=== PATIENT | female | born 1950 | race Caucasian/White ===

== ENCOUNTER 2018-03-18 07:30 | Emergency (ER) | payer MEDICARE ==
[2018-03-18 07:36] VITALS: RESP 18
[2018-03-18] MEDS ORDERED: SODIUM CHLORIDE 0.9% 1,000 ML IV STA (07:39)
[2018-03-18 08:47] LABS: Appearance,Urine Clear (Clear); Bilirubin,Urine Negative (Negative); Blood,Urine Negative (Negative); Color,Urine Light Yellow; Glucose,Urine (UA) Negative (Negative); Ketones,Urine Negative (Negative); Leukocyte Esterase,Urine Negative (Negative); Nitrite,Urine Negative (Negative); Protein,Urine Negative (Negative); Specific Gravity,Urine 1.004 (1.001-1.035); Urobilinogen,Urine <2.0 mg/dL (<2.0)
[2018-03-18 08:59] LABS: Basophils % (A) 0 %; Eosinophils # (A) 0.1 k/uL (0-0.7); Eosinophils % (A) 1 %; HCT 39.2 % (34.0-46.0); HGB 12.9 gm/dL (11.4-16.0); Lymphocytes # (A) 1.2 k/uL (1.0-4.8); Lymphocytes % (A) 18 %; MCH 30.3 pg (25.0-35.0); MCHC 32.8 g/dL (31.0-37.0); MCV 92.3 fL (80.0-100.0); Mean Platelet Volume 6.5; Monocytes # (A) 0.3 k/uL (0-1.0); Monocytes % (A) 5 %; Neutrophils % (A) 75 %; Platelet Count 247 k/uL (150-450); RBC 4.25 m/uL (3.80-5.40); RDW 12.5 % (11.5-15.5); WBC 6.7 k/uL (3.8-10.6)
[2018-03-18 09:00] LABS: Albumin 3.8 g/dL (3.5-5.0); Calcium 9.5 mg/dL (8.4-10.2); Total Bilirubin 0.7 mg/dL (0.2-1.3); Total Protein 6.3 g/dL (6.3-8.2)
--- NOTE | 2018-03-18 09:50 | CT ---
EXAMINATION TYPE: CT abdomen pelvis w con DATE OF EXAM: 03/18/2018 COMPARISON: None INDICATION: Left upper flank pain DLP: 551.4 mGycm, Automated exposure control for dose reduction was used. CONTRAST: 100 mL of Isovue 300. Study performed without Oral Contrast TECHNIQUE: Axial images were obtained from above the diaphragm to the pubic rami in the axial plane a t 5 mm thick sections. Reconstructed images are reviewed on the computer in the coronal plane. FINDINGS: Limited CT sections are obtained the lung bases. The lung bases are clear. CT ABDOMEN: Liver: Some very subtle hypodensity may be within the right lobe liver adjacent to the ligamentum ter es. Series 201 image 25. On delayed images this area appears normal. May be related to the phase of c ontrast. Underlying abnormality is not excluded. Consider ultrasound for additional evaluation. Spleen: Normal Pancreas: There is a 0.5 cm slightly hypodense area within the proximal tail of the pancreas. Series 201 image 25. Remainder the pancreas appears unremarkable. This could be further evaluated with ultra sound. Adrenal glands: The adrenal glands are normal. Gallbladder: Normal Kidneys: No masses are evident. No hydronephrosis is present. No cortical renal cysts are present. Left peripelvic cysts are present. Delayed images were obtained through the kidneys, which remain unr emarkable. Aorta: Normal Inferior vena cava: Normal. CT PELVIS: Loops of bowel within the abdomen and pelvis are normal. Study is performed without oral contrast limiting bowel evaluation. Appendix: Normal as visualized. Urinary bladder: Normal. Genitourinary structures: Uterus and adnexa are unremarkable. No free fluid is within the pelvis. Osseous structures: No suspicious lytic or sclerotic lesions. Some facet degenerative changes present . IMPRESSIONS: 1. Suspicious acute changes not evident to account for left flank pain. 2. Subtle changes on the early phase contrast within the pancreas and liver discussed above. Follow-u p ultrasound could be performed.
--- NOTE | 2018-03-18 10:14 | ED ---
Abdominal Pain HPI - General Source: patient, RN notes reviewed Mode of arrival: ambulatory Limitations: no limitations <Jaime Cooper - Last Filed: 03/18/18 10:09> <Bari Vogel - Last Filed: 03/18/18 10:18> - General Chief Complaint: Abdominal Pain Stated Complaint: LEFT FLANK PAIN Time Seen by Provider: 03/18/18 07:38 - History of Present Illness Initial Comments: 67-year-old female presents emergency Department chief complaint of left upper quadrant abdominal pain. Patient states that has wax and wane but is worsened overnight. Patient states pain wraps around her back. She denies any associated nausea, vomiting diarrhea constipation. Denies any chest pain or shortness breath no acid reflux. She states only hurts if you press on it. Patient states that she's had a colonoscopy or approximately 5 years ago which had no acute abnormality's. Patient denies any melena or rectal bleeding. Patient had no dysuria no hematuria no history kidney stones. (Jaime Cooper) - Related Data Home Medications Medication Instructions Recorded Confirmed Ibuprofen [Motrin Ib] 400 mg PO Q6H PRN 03/18/18 03/18/18 Allergies Allergy/AdvReac Type Severity Reaction Status Date / Time ampicillin Allergy Rash/Hives Verified 03/18/18 08:23 Penicillins Allergy Rash/Hives Verified 03/18/18 08:23 Review of Systems ROS Other: All systems not noted in ROS Statement are negative. <Jaime Cooper - Last Filed: 03/18/18 10:09> ROS Other: All systems not noted in ROS Statement are negative. <Bari Vogel - Last Filed: 03/18/18 10:18> ROS Statement: Those systems with pertinent positive or pertinent negative responses have been documented in the HPI. Past Medical History Past Medical History: No Reported History History of Any Multi-Drug Resistant Organisms: None Reported Additional Past Surgical History / Comment(s): left overy removal Past Psychological History: No Psychological Hx Reported Smoking Status: Never smoker Past Alcohol Use History: Occasional Past Drug Use History: None Reported <Jaime Cooper - Last Filed: 03/18/18 10:09> General Exam Limitations: no limitations General appearance: alert, in no apparent distress Head exam: Present: atraumatic, normocephalic, normal inspection Eye exam: Present: normal appearance, PERRL, EOMI. Absent: scleral icterus, conjunctival injection, periorbital swelling ENT exam: Present: normal exam, normal oropharynx, mucous membranes moist Neck exam: Present: normal inspection. Absent: tenderness, meningismus, lymphadenopathy Respiratory exam: Present: normal lung sounds bilaterally. Absent: respiratory distress, wheezes, rales, rhonchi, stridor Cardiovascular Exam: Present: regular rate, normal rhythm, normal heart sounds. Absent: systolic murmur, diastolic murmur, rubs, gallop, clicks GI/Abdominal exam: Present: soft, tenderness (Mild to moderate mid to left upper quadrant tenderness), normal bowel sounds. Absent: distended, guarding, rebound, rigid Back exam: Absent: CVA tenderness (R), CVA tenderness (L) Skin exam: Present: warm, dry, intact, normal color. Absent: rash <Jaime Cooper - Last Filed: 03/18/18 10:09> Course <Jaime Cooper - Last Filed: 03/18/18 10:09> <Bari Vogel - Last Filed: 03/18/18 10:18> Vital Signs 03/18/18 07:31 Temperature 97.9 F Pulse Rate 89 Respiratory 18 Rate Blood Pressure 140/89 O2 Sat by Pulse 99 Oximetry - Reevaluation(s) Reevaluation #1: 03/18/18 10:15 PA supervision: I proceeded [id number] evaluation the patient she's had left- sided flank pain radiating from the left CVA area around to the front. She has some mild tenderness palpation no evidence of any rash however. No fevers chills nausea vomiting sweats dysuria hematuria or constipation. She does have a history of shingles in the past. Workup is essentially unremarkable except for a hypodensity in pain.. She'll be discharged and referred to GI. I do agree with the assessment and plan. The presentation may represent musculoskeletal versus early herpes zoster. Patient was informed of this and she has had before and will be vigilant. 03/18/18 10:18 (Bari Vogel) Medical Decision Making - Lab Data Result diagrams: 03/18/18 08:30 03/18/18 08:30 <Jaime Cooper - Last Filed: 03/18/18 10:09> - Lab Data Result diagrams: 03/18/18 08:30 03/18/18 08:30 <JaspreetBari - Last Filed: 03/18/18 10:18> - Medical Decision Making 67-year-old female presented for dominant pain. Patient had lab work which was unremarkable CT was obtained to rule out diverticulitis, kidney stone or any other infectious aspects. This did not reveal any acute abnormality other than small area noted on the liver and pancreas. Patient was updated about these findings and the importance of following up with GI to have ultrasound and further workup. (Jaime Cooper) - Lab Data Lab Results 03/18/18 03/18/18 03/18/18 Range/Units 08:30 08:30 08:30 WBC 6.7 (3.8-10.6) k/uL RBC 4.25 (3.80-5.40) m/uL Hgb 12.9 (11.4-16.0) gm/dL Hct 39.2 (34.0-46.0) % MCV 92.3 (80.0-100.0) fL MCH 30.3 (25.0-35.0) pg MCHC 32.8 (31.0-37.0) g/dL RDW 12.5 (11.5-15.5) % Plt Count 247 (150-450) k/uL Neutrophils % 75 % Lymphocytes % 18 % Monocytes % 5 % Eosinophils % 1 % Basophils % 0 % Neutrophils # 5.0 (1.3-7.7) k/uL Lymphocytes # 1.2 (1.0-4.8) k/uL Monocytes # 0.3 (0-1.0) k/uL Eosinophils # 0.1 (0-0.7) k/uL Basophils # 0.0 (0-0.2) k/uL Sodium 139 (137-145) mmol/L Potassium 4.0 (3.5-5.1) mmol/L Chloride 105 (98-107) mmol/L Carbon Dioxide 26 (22-30) mmol/L Anion Gap 8 mmol/L BUN 12 (7-17) mg/dL Creatinine 0.87 (0.52-1.04) mg/dL Est GFR (CKD-EPI)AfAm 81 (>60 ml/min/1.73 sqM) Est GFR (CKD-EPI)NonAf 70 (>60 ml/min/1.73 sqM) Glucose 99 (74-99) mg/dL Plasma Lactic Acid Cameron (0.7-2.0) mmol/L Calcium 9.5 (8.4-10.2) mg/dL Total Bilirubin 0.7 (0.2-1.3) mg/dL AST 22 (14-36) U/L ALT 24 (9-52) U/L Alkaline Phosphatase 71 (38-126) U/L Total Protein 6.3 (6.3-8.2) g/dL Albumin 3.8 (3.5-5.0) g/dL Amylase 79 (30-110) U/L Lipase 176 (23-300) U/L Urine Color Light Yellow Urine Appearance Clear (Clear) Urine pH 5.0 (5.0-8.0) Ur Specific Vickery 1.004 (1.001-1.035) Urine Protein Negative (Negative) Urine Glucose (UA) Negative (Negative) Urine Ketones Negative (Negative) Urine Blood Negative (Negative) Urine Nitrite Negative (Negative) Urine Bilirubin Negative (Negative) Urine Urobilinogen <2.0 (<2.0) mg/dL Ur Leukocyte Esterase Negative (Negative) 03/18/18 Range/Units 08:30 WBC (3.8-10.6) k/uL RBC (3.80-5.40) m/uL Hgb (11.4-16.0) gm/dL Hct (34.0-46.0) % MCV (80.0-100.0) fL MCH (25.0-35.0) pg MCHC (31.0-37.0) g/dL RDW (11.5-15.5) % Plt Count (150-450) k/uL Neutrophils % % Lymphocytes % % Monocytes % % Eosinophils % % Basophils % % Neutrophils # (1.3-7.7) k/uL Lymphocytes # (1.0-4.8) k/uL Monocytes # (0-1.0) k/uL Eosinophils # (0-0.7) k/uL Basophils # (0-0.2) k/uL Sodium (137-145) mmol/L Potassium (3.5-5.1) mmol/L Chloride (98-107) mmol/L Carbon Dioxide (22-30) mmol/L Anion Gap mmol/L BUN (7-17) mg/dL Creatinine (0.52-1.04) mg/dL Est GFR (CKD-EPI)AfAm (>60 ml/min/1.73 sqM) Est GFR (CKD-EPI)NonAf (>60 ml/min/1.73 sqM) Glucose (74-99) mg/dL Plasma Lactic Acid Cameron 0.9 (0.7-2.0) mmol/L Calcium (8.4-10.2) mg/dL Total Bilirubin (0.2-1.3) mg/dL AST (14-36) U/L ALT (9-52) U/L Alkaline Phosphatase (38-126) U/L Total Protein (6.3-8.2) g/dL Albumin (3.5-5.0) g/dL Amylase (30-110) U/L Lipase (23-300) U/L Urine Color Urine Appearance (Clear) Urine pH (5.0-8.0) Ur Specific Vickery (1.001-1.035) Urine Protein (Negative) Urine Glucose (UA) (Negative) Urine Ketones (Negative) Urine Blood (Negative) Urine Nitrite (Negative) Urine Bilirubin (Negative) Urine Urobilinogen (<2.0) mg/dL Ur Leukocyte Esterase (Negative) Disposition Is patient prescribed a controlled substance at d/c from ED?: No Time of Disposition: 10:12 <Jaime Cooper - Last Filed: 03/18/18 10:09> <Bari Vogel - Last Filed: 03/18/18 10:18> Clinical Impression: Abdominal pain, Pancreatic lesion Disposition: HOME SELF-CARE Condition: Stable Instructions: Abdominal Pain (ED) Additional Instructions: Follow-up with GI as directed. Please return to the Emergency Department if symptoms worsen or any other concerns. Referrals: Babatunde Kern MD [Primary Care Provider] - 1-2 days Yakov Love MD [STAFF PHYSICIAN] - 1-2 days
[2018-03-18 10:48] VITALS: BP 130/86; PULSE 81; TEMP 98.6
== END 2018-03-18 10:39 | disposition home or self-care (01) ==
LOC: EC 07:30
DX: K86.9 Disease of pancreas, unspecified (principal); Z88.0 Allergy status to penicillin
CPT/HCPCS: 36415; 80053; 82150; 83605; 83690; 85025; 81003; 74177; 99284; 96360; 96361; Q9967

== ENCOUNTER 2018-05-22 08:33 | Day surgery (SDC) | payer MEDICARE ==
[2018-05-20 15:15] VITALS: BMI 22.3
[~2018-05-22 08:33] MED LIST: LACTATED RINGERS 1,000 ML IV SCH; LIDOCAINE 1% 20 ML VIAL (10MG/ML) FOR IV START INTRADERMA PRN; MIDAZOLAM (PF) 2 MG/2 ML VIAL IV PRN
[2018-05-22 09:13] VITALS: RESP 16; TEMP 97.5
[2018-05-22] MEDS ORDERED: LIDOCAINE 1% INJ 10MG/ML (20 ML MDV) ONE (09:39)
[2018-05-22] MEDS ORDERED: PROPOFOL 10 MG/ML 20 ML VIAL IV ONE (09:39)
--- NOTE | 2018-05-22 10:07 | P.PCN ---
Date of Procedure: 05/22/18 Procedure(s) Performed: Procedure: Total colonoscopy. Preoperative diagnosis: Screening for neoplasia. Postoperative diagnosis: Mild diverticulosis with no evidence of acute diverticulitis, strictures, polyps or cancer. Preparation: HalfLytely prep. Sedation: Was provided by anesthesia. Brief clinical history: The patient is a 67-year-old female who is scheduled for this evaluation for screening for neoplasia age being her risk factor. Her last exam was in 2005. The patient has currently no abdominal pains, bleeding or anemia. Procedure: With the patient on her left lateral decubitus position and after informed consent and adequate sedation, the perianal area was inspected and it did not show any fissures or fistulas. There were no masses felt on digital rectal examination. The Olympus CFH 190L video colonoscope was then inserted in the rectum in the usual fashion and advanced to the cecum. There was occasional diverticular orifices seen on the right side but I saw no evidence of acute diverticulitis or strictures. The mucosa appeared healthy. No polyps or tumors were seen. I retroflexed the endoscope in the rectum before the endoscope was withdrawn. The patient tolerated the procedure well. Plan: The patient was reassured. Discussed dietary measures. She will follow- up with you as planned and I recommended repeat exam in 10 years.
[2018-05-22 10:28] VITALS: BP 102/71; PULSE 77
== END 2018-05-22 10:52 | disposition home or self-care (01) ==
LOC: ORWHC2ENDO 08:33
DX: Z12.11 Encounter for screening for malignant neoplasm of colon (principal); K57.30 Diverticulosis of large intestine without perforation or abscess without bleeding; J45.909 Unspecified asthma, uncomplicated; Z85.828 Personal history of other malignant neoplasm of skin; Z88.0 Allergy status to penicillin
CPT/HCPCS: J2001; J2704; G0121